=== PATIENT | female | born 1935 | race Caucasian/White ===

== ENCOUNTER 2020-02-28 15:41 | Inpatient (IN) | payer MEDICARE ==
[2020-02-28] MEDS ORDERED: HYDROcodone/Acetaminophen 7.5/325 mg Tablet PO PRN (17:28)
[2020-02-28] MEDS ORDERED: Promethazine 25 MG TAB PO PRN (17:31)
[2020-02-28] MEDS ORDERED: Zolpidem Tartrate 5 MG TAB PO PRN (17:32)
[2020-02-28] MEDS ORDERED: diphenhydrAMINE 25 MG CAP PO PRN (17:35)
[2020-02-28] MEDS ORDERED: Docusate Calcium (SURFAK) 240 MG CAP PO PRN (17:35)
[2020-02-28] MEDS ORDERED: Docusate Calcium (SURFAK) 240 MG CAP PO SCH (21:45)
[2020-02-28] MEDS: Gabapentin 300 MG CAP PO SCH (21:50)
[2020-02-28] MEDS: Atorvastatin Calcium 20 MG TAB PO SCH (21:50)
[2020-02-28] MEDS: Ezetimibe 10 MG TAB PO SCH (21:50)
[2020-02-28] MEDS: Cephalexin 500 MG CAP PO SCH (21:52)
[2020-02-28] MEDS: Carvedilol 6.25 MG TAB PO SCH (21:52)
[2020-02-28] MEDS ORDERED: Ondansetron ODT 4 MG TAB PO PRN (21:52)
[2020-02-28] MEDS: Enoxaparin Sodium 30 MG/0.3 ML SYRINGE SC SCH (21:52)
[2020-02-28] MEDS ORDERED: Ondansetron ODT 4 MG TAB PO SCH (22:00)
[2020-02-29] MEDS: Levothyroxine Sodium 100 MCG TAB PO SCH (05:33)
[2020-02-29] MEDS: Enoxaparin Sodium 30 MG/0.3 ML SYRINGE SC SCH ×2 (08:43→20:53)
[2020-02-29] MEDS: Milk Of Magnesia 30 ML UDCUP PO SCH (08:43)
[2020-02-29] MEDS: Gabapentin 300 MG CAP PO SCH ×3 (08:43→20:53)
[2020-02-29] MEDS: Cephalexin 500 MG CAP PO SCH ×2 (08:43→20:54)
[2020-02-29] MEDS: Docusate Calcium (SURFAK) 240 MG CAP PO SCH ×2 (08:43→20:53)
[2020-02-29] MEDS: traMADol HCl 50 MG TAB PO PRN ×2 (08:44→15:50)
[2020-02-29] MEDS: Multivitamin W/ Minerals 1 TAB PO SCH (08:44)
[2020-02-29] MEDS: Carvedilol 6.25 MG TAB PO SCH ×2 (08:45→20:54)
[2020-02-29] MEDS: Ferrous Gluconate 324 MG TAB PO SCH (08:45)
--- NOTE | 2020-02-29 12:20 | HP ---
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 BRIEF HISTORY: This is a pleasant 84-year-old female who underwent left hip revision by Dr. Beltran. Postoperative period was uneventful. She has a history of right hip replacement followed by dislocation, requiring reduction couple of times and has a footdrop on the right, which is slowly improving. She was felt to be a candidate for inpatient rehabilitation, so transferred here. Currently, the patient is resting in bed and denies any concerns. Pain is controlled on current regimen. COVID test is pending. Medically, she has history of hypertension, dyslipidemia, hypothyroidism and states that she has been compliant with her medications and denies any problems in the recent past. No family at bedside. PAST MEDICAL HISTORY: 1. Hypertension. 2. Dyslipidemia. 3. Hypothyroidism. 4. Osteoarthritis. 5. Right footdrop. 6. Chronic back pain. PAST SURGICAL HISTORY: 1. Tonsillectomy. 2. Lumbar spine surgery. 3. Hysterectomy. 4. Cervical spine surgery. 5. Bilateral cataract extractions. 6. Bilateral bunionectomy. 7. Appendectomy. 8. Right hip replacement. 9. Left hip replacement. 10. Knee arthroscopy. MEDICATIONS: She has been transferred here on the following medications. 1. Tylenol 650 q.4 p.r.n. 2. Lipitor 20 mg daily. 3. Carvedilol 6.25 mg b.i.d. 4. Keflex 500 mg q.12, I am not sure why she is on it. 5. Cyclobenzaprine 10 mg t.i.d. p.r.n. 6. Benadryl 25 q.6 p.r.n. 7. Surfak 240 mg b.i.d. 8. Lovenox 30 mg subcu b.i.d. 9. Zetia 10 mg daily. 10. Ferrous gluconate 324 daily. 11. Gabapentin 300 mg t.i.d. 12. She is also on Jakin 7.5/325 one tablet q.4 p.r.n. 13. Levoxyl 100 mcg daily. 14. Milk of magnesia 30 mL daily. 15. Myrbetriq 50 mg at bedtime. 16. Zofran 4 mg q.8 h. as needed. 17. Tramadol 50 mg q.6 p.r.n. 18. Ambien 5 mg nightly p.r.n. FAMILY HISTORY: Noncontributory to current admission. PSYCHOSOCIAL HISTORY: Denies any tobacco, alcohol, or recreational drug abuse. She was fairly active prior to this surgery. She did have the restrictions related to her right footdrop. REVIEW OF SYSTEMS: GENERAL: Denies any fever, chills, or weight changes. CARDIOVASCULAR: Denies any chest pain, shortness of breath, palpitations, PND, orthopnea, or pedal edema. RESPIRATORY: Denies any chronic cough, expectoration, or pleuritic-type chest pain. GASTROINTESTINAL: Denies any nausea, vomiting, diarrhea, constipation, hematemesis, melena, or hematochezia. GENITOURINARY: Denies any frequency, urgency, dysuria, or hematuria. CENTRAL NERVOUS SYSTEM: Right footdrop. Denies any focal numbness, weakness, or fainting spells. EXTREMITIES: Left hip pain. SKIN: Denies any rash. HEENT: Denies any changes with speech, vision, hearing, or swallowing. ALLERGIES: LATEX AND NATURAL RUBBER. NO KNOWN DRUG ALLERGIES. PHYSICAL EXAMINATION: GENERAL: A pleasant 84-year-old female, resting in bed, and denies any concerns. She responds appropriately to questions. She is alert, awake, and oriented x3. VITAL SIGNS: She is afebrile; heart rate is not documented, but on listening to her, it is about 72; blood pressure is 162/75; oxygen saturation is 95%; respiratory rate is not documented, but on examining, the rate is about 12. HEENT: Normocephalic and atraumatic. Pupils equally reacting to light and accommodation. No JVD, thyromegaly, cervical adenopathy, or throat exudates. No carotid bruits. CARDIOVASCULAR: S1 and S2 plus. Rate and rhythm regular. RESPIRATORY: Normal vesicular breath sounds heard in all lung leigh. ABDOMEN: Soft and nontender. Bowel sounds heard in all quadrants. EXTREMITIES: Without cyanosis or clubbing. Left hip incision with dressing. There is a Band-Aid over the site of the mass excision from the right index finger. There is no evidence for any neurovascular compromise. CENTRAL NERVOUS SYSTEM: Awake and responsive. Cranial nerves 2 through 12 intact. Generalized weakness. LABORATORY VALUES: None done on admission. IMPRESSION: 1. Status post left hip revision arthroplasty. 2. Osteoarthritis. 3. Hypertension. 4. Dyslipidemia. 5. Hypothyroidism. 6. Chronic back pain. 7. Right footdrop. PLAN: 1. Continue discharge medications from previous hospital. 2. Get baseline CBC and CMP. 3. Heart healthy diet. 4. Monitor blood pressure and adjust medications as needed. 5. PT/OT evaluation and treatment. 6. DVT prophylaxis, the patient is on Lovenox. 7. Decubitus precautions. 8. Orthopedic precautions and incision care. 9. Dr. Magaña back tonight. 10. No family at bedside. 11. Await COVID-19 test, until then continue droplet precautions. Job ID: [id number]
[2020-02-29 18:35] LABS: SARS-CoV-2 MS2 Positive; SARS-CoV-2 N Gene Negative; SARS-CoV-2 S Gene Negative; SARS-CoV-2 by NAA Not Detected (NotDetected); SARS-CoV-2 orf1ab Negative
[2020-02-29] MEDS: Ezetimibe 10 MG TAB PO SCH (20:53)
[2020-02-29] MEDS: Atorvastatin Calcium 20 MG TAB PO SCH (20:54)
[2020-03-01] MEDS: Levothyroxine Sodium 100 MCG TAB PO SCH (05:00)
[2020-03-01 06:01] LABS: #Eosinphils 0.2 thou/uL (0.0-0.7); #Lymphocytes 1.1 thou/uL (1.20-3.40); #Monocytes 0.5 thou/uL (0.11-0.59); #Neutrophils 2.3 thou/uL (1.40-6.50); %Basophils 0.9 % (0.0-1.0); %Eosinophils 4.8 % (0.0-10.0); %Lymphocytes 26.9 % (21.0-51.0); %Monocytes 11.4 % (0.0-10.0); %Neutrophils 56.1 % (42.0-75.0); Hemoglobin 8.5 g/dL (12.0-16.0); Mean Corpuscular HGB CONC 31.4 g/dL (32.0-36.0); Mean Corpuscular Hemoglobin 28.2 pg (27.0-31.0); Mean Platelet Volume 10.5 fL (7.4-10.4); Platelet Count 127 thou/uL (130-400); RBC Distribution Width 12.4 % (11.5-14.5); Red Blood Cell (RBC) Count 3.02 mill/uL (4.20-5.40); White Blood Cell (WBC) Count 4.1 thou/uL (4.8-10.8)
[2020-03-01 06:11] LABS: Anion Gap 10 mmol/L (10-20); BUN (Urea Nitrogen) 15 mg/dL (9.8-20.1); Calc. Creatinine Clearance 78 mL/min (70-130); Calcium 7.6 mg/dL (7.8-10.44); Carbon Dioxide 26 mmol/L (23-31); Chloride 106 mmol/L (98-107); Glucose 96 mg/dL (83-110); Potassium 3.9 mmol/L (3.5-5.1); Sodium 138 mmol/L (136-145)
[2020-03-01] MEDS: Gabapentin 300 MG CAP PO SCH ×3 (08:29→20:43)
[2020-03-01] MEDS: Enoxaparin Sodium 30 MG/0.3 ML SYRINGE SC SCH ×2 (08:29→20:41)
[2020-03-01] MEDS: Ferrous Gluconate 324 MG TAB PO SCH (08:29)
[2020-03-01] MEDS: Milk Of Magnesia 30 ML UDCUP PO SCH (08:29)
[2020-03-01] MEDS: Cephalexin 500 MG CAP PO SCH ×2 (08:30→20:42)
[2020-03-01] MEDS: Multivitamin W/ Minerals 1 TAB PO SCH (08:30)
[2020-03-01] MEDS: Docusate Calcium (SURFAK) 240 MG CAP PO SCH ×2 (08:30→20:43)
[2020-03-01] MEDS: Carvedilol 6.25 MG TAB PO SCH ×2 (08:30→20:43)
[2020-03-01] MEDS: traMADol HCl 50 MG TAB PO PRN (14:59)
[2020-03-01] MEDS: Acetaminophen 325 MG TAB PO PRN (20:42)
[2020-03-01] MEDS: Ezetimibe 10 MG TAB PO SCH (20:43)
[2020-03-01] MEDS: Atorvastatin Calcium 20 MG TAB PO SCH (20:43)
[2020-03-01] MEDS: Cyclobenzaprine 10 MG TAB PO PRN (20:43)
[2020-03-02] MEDS: Acetaminophen 325 MG TAB PO PRN ×2 (04:30→13:42)
[2020-03-02] MEDS: traMADol HCl 50 MG TAB PO PRN ×2 (04:31→13:43)
[2020-03-02] MEDS: Levothyroxine Sodium 100 MCG TAB PO SCH (05:41)
[2020-03-02] MEDS: Cyclobenzaprine 10 MG TAB PO PRN ×2 (08:33→21:19)
[2020-03-02] MEDS: Multivitamin W/ Minerals 1 TAB PO SCH (08:34)
[2020-03-02] MEDS: Gabapentin 300 MG CAP PO SCH ×3 (08:35→21:22)
[2020-03-02] MEDS: Docusate Calcium (SURFAK) 240 MG CAP PO SCH ×2 (08:36→21:20)
[2020-03-02] MEDS: Cephalexin 500 MG CAP PO SCH ×2 (08:36→21:20)
[2020-03-02] MEDS: Carvedilol 6.25 MG TAB PO SCH ×2 (08:36→21:21)
[2020-03-02] MEDS: Ferrous Gluconate 324 MG TAB PO SCH (08:36)
[2020-03-02] MEDS: Enoxaparin Sodium 30 MG/0.3 ML SYRINGE SC SCH ×2 (08:37→21:19)
[2020-03-02] MEDS: Milk Of Magnesia 30 ML UDCUP PO SCH (08:37)
[2020-03-02] MEDS: Ezetimibe 10 MG TAB PO SCH (21:20)
[2020-03-02] MEDS: Atorvastatin Calcium 20 MG TAB PO SCH (21:21)
[2020-03-03] MEDS: Levothyroxine Sodium 100 MCG TAB PO SCH (06:04)
[2020-03-03] MEDS: Enoxaparin Sodium 30 MG/0.3 ML SYRINGE SC SCH ×2 (07:53→20:44)
[2020-03-03] MEDS: Ferrous Gluconate 324 MG TAB PO SCH (07:54)
[2020-03-03] MEDS: Gabapentin 300 MG CAP PO SCH ×3 (07:54→20:43)
[2020-03-03] MEDS: Milk Of Magnesia 30 ML UDCUP PO SCH (07:54)
[2020-03-03] MEDS: Cephalexin 500 MG CAP PO SCH ×2 (07:55→20:45)
[2020-03-03] MEDS: Docusate Calcium (SURFAK) 240 MG CAP PO SCH ×2 (07:55→20:42)
[2020-03-03] MEDS: Carvedilol 6.25 MG TAB PO SCH ×2 (07:55→20:44)
[2020-03-03] MEDS: Multivitamin W/ Minerals 1 TAB PO SCH (07:55)
[2020-03-03] MEDS: Acetaminophen 325 MG TAB PO PRN (07:58)
[2020-03-03] MEDS: traMADol HCl 50 MG TAB PO PRN (08:00)
--- NOTE | 2020-03-03 16:43 | PRG ---
DATE OF SERVICE: 03/03/2020 SUBJECTIVE: The patient is doing well. No acute concerns. No acute events overnight. Discussed with the patient's staff, no concerns or complaints. REVIEW OF SYSTEMS: Denies any fever, chills, cough, congestion, chest pain, palpitations, nausea, vomiting, or diarrhea. OBJECTIVE: VITAL SIGNS: Today, temperature 97.8, blood pressure 171/77 to 182/79, respirations 16, O2 sats 96% on room air. GENERAL: Well-appearing 84-year-old female, in no acute distress, lying in bed, resting. RESPIRATIONS: Clear to auscultation bilaterally. No wheeze or rhonchi. HEART: Regular rate and rhythm. No murmurs, gallops, or rubs. GI: Soft, nontender to palpation. Bowel sounds positive in all 4 quadrants. EXTREMITIES: No cyanosis or clubbing. ASSESSMENT: 1. Status post left hip arthroplasty. 2. Osteoarthritis. 3. Hypertension. 4. Dyslipidemia. 5. Hypothyroidism. 6. Chronic back pain. 7. Right footdrop. PLAN: 1. Adjust the patient's blood pressure medication for better control. 2. Follow up CBC and CMP in a.m. 3. Heart-healthy diet. 4. Monitor for any decompensation. 5. PT/OT. 6. DVT and stress ulcer prophylaxis. 7. Decubitus precautions. 8. Orthopedic precautions, incision care. Job ID: [id number]
--- NOTE | 2020-03-03 16:45 | PRG ---
DATE OF SERVICE: 03/03/2020 SUBJECTIVE: The patient is an 84-year-old female, here for continued PT and OT services. She was originally at [facility] for revision of a left hip arthroplasty. Overall, she is doing very well. No complaints today. No family at bedside. Discussed with nursing staff. REVIEW OF SYSTEMS: Denies any cough, congestion, fever, chills, chest pain, palpitations, nausea, vomiting, or diarrhea. OBJECTIVE: VITAL SIGNS: Temperature 98.4, pulse 80, blood pressure 159/73, respirations 18, and O2 sats 94% on room air. LABORATORY DATA: White count 4.1, hemoglobin 8.5, hematocrit 27.2, and platelets 127. Sodium 138, potassium 3.9, chloride 106, bicarb 26, BUN 15, creatinine 0.76, GFR 73, and calcium 7.6. PHYSICAL EXAMINATION: GENERAL: A well-appearing 84-year-old female, lying in bed, in no acute distress. HEART: Regular rate and rhythm. No murmurs, gallops, or rubs. RESPIRATORY: Clear to auscultation bilaterally. No wheezes or rhonchi. ABDOMEN: Soft, nontender to palpation. Bowel sounds positive in all 4 quadrants. EXTREMITIES: No cyanosis, no clubbing. IMPRESSION: 1. Status post left hip revision arthroplasty. 2. Osteoarthritis. 3. Hypertension. 4. Dyslipidemia. 5. Hypothyroidism. 6. Chronic back pain. 7. Right footdrop. PLAN: 1. Continue current medications. 2. Follow up with hemoglobin and hematocrit at next CBC. 3. Heart healthy diet. 4. Monitor blood pressure and adjust medications as necessary. 5. PT/OT. 6. DVT and stress ulcer prophylaxis. 7. Decubitus precautions. 8. Orthopedic precautions and incision care. 9. The patient will need to follow up with Orthopedics following her discharge. 10. COVID test negative. Job ID: [id number]
[2020-03-03] MEDS: Ezetimibe 10 MG TAB PO SCH (20:43)
[2020-03-03] MEDS: Atorvastatin Calcium 20 MG TAB PO SCH (20:44)
[2020-03-04] MEDS: Levothyroxine Sodium 100 MCG TAB PO SCH (05:24)
[2020-03-04 05:51] LABS: #Eosinphils 0.2 thou/uL (0.0-0.7); #Lymphocytes 1.1 thou/uL (1.20-3.40); #Monocytes 0.5 thou/uL (0.11-0.59); #Neutrophils 2.2 thou/uL (1.40-6.50); %Basophils 0.7 % (0.0-1.0); %Eosinophils 5.3 % (0.0-10.0); %Lymphocytes 27.8 % (21.0-51.0); %Monocytes 11.2 % (0.0-10.0); Hemoglobin 8.7 g/dL (12.0-16.0); Mean Corpuscular HGB CONC 32.6 g/dL (32.0-36.0); Mean Corpuscular Hemoglobin 29.3 pg (27.0-31.0); Mean Corpuscular Volume 89.7 fL (78.0-98.0); Mean Platelet Volume 9.3 fL (7.4-10.4); Platelet Count 159 thou/uL (130-400); RBC Distribution Width 13.3 % (11.5-14.5); Red Blood Cell (RBC) Count 2.98 mill/uL (4.20-5.40)
[2020-03-04 06:04] LABS: Anion Gap 11 mmol/L (10-20); BUN (Urea Nitrogen) 18 mg/dL (9.8-20.1); Calc. Creatinine Clearance 76 mL/min (70-130); Calcium 7.9 mg/dL (7.8-10.44); Carbon Dioxide 27 mmol/L (23-31); Chloride 106 mmol/L (98-107); Glucose 96 mg/dL (83-110); Potassium 3.9 mmol/L (3.5-5.1); Sodium 140 mmol/L (136-145)
[2020-03-04] MEDS: Cephalexin 500 MG CAP PO SCH ×2 (08:34→20:11)
[2020-03-04] MEDS: Lisinopril 5 MG TAB PO SCH (08:34)
[2020-03-04] MEDS: Milk Of Magnesia 30 ML UDCUP PO SCH (08:34)
[2020-03-04] MEDS: Docusate Calcium (SURFAK) 240 MG CAP PO SCH ×2 (08:34→20:11)
[2020-03-04] MEDS: Ferrous Gluconate 324 MG TAB PO SCH (08:34)
[2020-03-04] MEDS: Gabapentin 300 MG CAP PO SCH ×3 (08:35→20:11)
[2020-03-04] MEDS: Enoxaparin Sodium 30 MG/0.3 ML SYRINGE SC SCH ×2 (08:35→20:12)
[2020-03-04] MEDS: Multivitamin W/ Minerals 1 TAB PO SCH (08:36)
[2020-03-04] MEDS: Carvedilol 6.25 MG TAB PO SCH ×2 (08:46→20:12)
[2020-03-04] MEDS: Acetaminophen 325 MG TAB PO PRN (08:47)
[2020-03-04] MEDS: traMADol HCl 50 MG TAB PO PRN (08:48)
[2020-03-04] MEDS ORDERED: Insulin Glargine 5 UNITS in Pre-Filled Syringe 1 EACH SC SCH (09:00)
--- NOTE | 2020-03-04 19:14 | PRG ---
DATE OF SERVICE: 03/04/2020 SUBJECTIVE: The patient feels well, is eating well, working with Therapy, no complaints. OBJECTIVE: VITAL SIGNS: Temperature is 97, pulse 76, respirations 18, O2 saturations 95% on room air, and blood pressure 163/64. LUNGS: Clear. CARDIAC: Regular rhythm. ABDOMEN: Soft and nontender. LABORATORY DATA: White count of 4000, hematocrit 26, and hemoglobin 8.7. Sodium 140, potassium 3.9, chloride 106, bicarb 27, BUN 18, and creatinine 0.78. ASSESSMENT: 1. Resolving left total hip. 2. Improving deconditioning. 3. Stable hypertension, slightly increased. 4. Chronic back pain. PLAN: 1. Monitor blood pressure. May need to adjust medicines as still is quite goal. 2. Continue PT/OT. 3. Continue pain relief for admission medications. 4. Continue to monitor hemoglobin, appears to be stable. Job ID: [id number]
[2020-03-04] MEDS: Atorvastatin Calcium 20 MG TAB PO SCH (20:11)
[2020-03-04] MEDS: Ezetimibe 10 MG TAB PO SCH (20:12)
[2020-03-05] MEDS: Levothyroxine Sodium 100 MCG TAB PO SCH (05:23)
[2020-03-05] MEDS: Ferrous Gluconate 324 MG TAB PO SCH (09:10)
[2020-03-05] MEDS: Milk Of Magnesia 30 ML UDCUP PO SCH (09:10)
[2020-03-05] MEDS: Enoxaparin Sodium 30 MG/0.3 ML SYRINGE SC SCH ×2 (09:10→21:15)
[2020-03-05] MEDS: Docusate Calcium (SURFAK) 240 MG CAP PO SCH ×2 (09:10→21:15)
[2020-03-05] MEDS: Cephalexin 500 MG CAP PO SCH ×2 (09:10→21:15)
[2020-03-05] MEDS: Gabapentin 300 MG CAP PO SCH ×3 (09:10→21:14)
[2020-03-05] MEDS: Lisinopril 5 MG TAB PO SCH (09:11)
[2020-03-05] MEDS: Carvedilol 6.25 MG TAB PO SCH ×2 (09:11→21:14)
[2020-03-05] MEDS: Multivitamin W/ Minerals 1 TAB PO SCH (09:11)
--- NOTE | 2020-03-05 16:02 | PRG ---
DATE OF SERVICE: 03/05/2020 SUBJECTIVE: Ms. Stacy is resting in bed. She just finished her lunch. She denies any questions or concerns. She is happy with her progress. OBJECTIVE: VITAL SIGNS: She is afebrile. Heart rate 83, respirations 20, oxygen saturation 96% on room air, blood pressure 122/68. CARDIOVASCULAR SYSTEM: S1 and S2 plus. RESPIRATORY SYSTEM: Normal vesicular breath sounds. ABDOMEN: Soft, nontender. Bowel sounds heard in all quadrants. EXTREMITIES: Without cyanosis or clubbing. CENTRAL NERVOUS SYSTEM: Improving deconditioning. IMPRESSION: 1. Hypertension. 2. Dyslipidemia. 3. Hypothyroidism. 4. Osteoarthritis. 5. Recent revision of left hip arthroplasty. PLAN: 1. Continue current medications. 2. Nutritional support with heart healthy diet. 3. Orthopedic precautions. 4. DVT prophylaxis-the patient is on Lovenox. 5. Decubitus precautions. 6. Stress ulcer prophylaxis. 7. Physical therapy. 8. Routine laboratory values. Job ID: [id number]
[2020-03-05] MEDS: Ezetimibe 10 MG TAB PO SCH (21:15)
[2020-03-05] MEDS: Atorvastatin Calcium 20 MG TAB PO SCH (21:15)
[2020-03-06] MEDS: Levothyroxine Sodium 100 MCG TAB PO SCH (06:15)
[2020-03-06] MEDS: Acetaminophen 325 MG TAB PO PRN (09:34)
[2020-03-06] MEDS: traMADol HCl 50 MG TAB PO PRN (09:36)
[2020-03-06] MEDS: Gabapentin 300 MG CAP PO SCH ×3 (09:36→21:29)
[2020-03-06] MEDS: Carvedilol 6.25 MG TAB PO SCH ×2 (09:37→21:30)
[2020-03-06] MEDS: Cephalexin 500 MG CAP PO SCH ×2 (09:37→21:30)
[2020-03-06] MEDS: Ferrous Gluconate 324 MG TAB PO SCH (09:38)
[2020-03-06] MEDS: Docusate Calcium (SURFAK) 240 MG CAP PO SCH ×2 (09:38→21:29)
[2020-03-06] MEDS: Multivitamin W/ Minerals 1 TAB PO SCH (09:38)
[2020-03-06] MEDS: Lisinopril 5 MG TAB PO SCH (09:38)
[2020-03-06] MEDS: Enoxaparin Sodium 30 MG/0.3 ML SYRINGE SC SCH ×2 (09:39→21:28)
[2020-03-06] MEDS: Milk Of Magnesia 30 ML UDCUP PO SCH (09:39)
--- NOTE | 2020-03-06 15:46 | PRG ---
DATE OF SERVICE: 03/06/2020 SUBJECTIVE: Ms. Stacy is up in her chair, enjoying a book. She is having a lazy Saturday. She apparently is scheduled to go home on the and she wonders if she can go home on the . I advised her that I will let Dr. Magaña know, but I do not foresee a problem. OBJECTIVE: VITAL SIGNS: She is afebrile. Heart rate 78, respirations 18, oxygen saturation 93% on room air, blood pressure 159/74. CARDIOVASCULAR: S1, S2 plus. RESPIRATORY: Normal vesicular breath sounds. ABDOMEN: Soft, nontender. Bowel sounds heard in all quadrants. EXTREMITIES: Without cyanosis or clubbing. CENTRAL NERVOUS SYSTEM: Improving deconditioning. IMPRESSION: 1. Revision of left hip arthroplasty. 2. Hypertension. 3. Dyslipidemia. 4. Hypothyroidism. 5. Osteoarthritis. 6. Improving deconditioning. PLAN: 1. Continue current medications. 2. Nutritional support with heart-healthy diet. 3. Monitor blood pressure and adjust medications as needed. 4. Orthopedic precautions. 5. DVT prophylaxis - she is on Lovenox. 6. Decubitus precaution. 7. Stress-ulcer prophylaxis. 8. Therapy. 9. Discharge planning. 10. Dr. Magaña back [facility]. Job ID: [id number]
[2020-03-06 20:35] VITALS: BMI 27.8
[2020-03-06] MEDS: Ezetimibe 10 MG TAB PO SCH (21:29)
[2020-03-06] MEDS: Atorvastatin Calcium 20 MG TAB PO SCH (21:29)
[2020-03-07] MEDS: Levothyroxine Sodium 100 MCG TAB PO SCH (06:00)
[2020-03-07] MEDS: traMADol HCl 50 MG TAB PO PRN (08:44)
[2020-03-07] MEDS: Enoxaparin Sodium 30 MG/0.3 ML SYRINGE SC SCH ×2 (08:46→20:54)
[2020-03-07] MEDS: Docusate Calcium (SURFAK) 240 MG CAP PO SCH ×2 (08:46→20:53)
[2020-03-07] MEDS: Gabapentin 300 MG CAP PO SCH ×3 (08:47→20:53)
[2020-03-07] MEDS: Multivitamin W/ Minerals 1 TAB PO SCH (08:47)
[2020-03-07] MEDS: Carvedilol 6.25 MG TAB PO SCH ×2 (08:48→20:53)
[2020-03-07] MEDS: Lisinopril 5 MG TAB PO SCH (08:48)
[2020-03-07] MEDS: Ferrous Gluconate 324 MG TAB PO SCH (08:49)
[2020-03-07] MEDS: Milk Of Magnesia 30 ML UDCUP PO SCH (08:49)
[2020-03-07] MEDS: Cephalexin 500 MG CAP PO SCH ×2 (08:49→20:54)
[2020-03-07] MEDS: Ezetimibe 10 MG TAB PO SCH (20:53)
[2020-03-07] MEDS: Atorvastatin Calcium 20 MG TAB PO SCH (20:54)
[2020-03-08] MEDS: Levothyroxine Sodium 100 MCG TAB PO SCH (06:06)
[2020-03-08] MEDS: traMADol HCl 50 MG TAB PO PRN (08:22)
[2020-03-08] MEDS: Milk Of Magnesia 30 ML UDCUP PO SCH (08:25)
[2020-03-08] MEDS: Enoxaparin Sodium 30 MG/0.3 ML SYRINGE SC SCH ×2 (08:25→21:18)
[2020-03-08] MEDS: Cephalexin 500 MG CAP PO SCH ×2 (08:25→21:19)
[2020-03-08] MEDS: Lisinopril 5 MG TAB PO SCH (08:26)
[2020-03-08] MEDS: Docusate Calcium (SURFAK) 240 MG CAP PO SCH ×2 (08:26→21:19)
[2020-03-08] MEDS: Gabapentin 300 MG CAP PO SCH ×3 (08:26→21:19)
[2020-03-08] MEDS: Multivitamin W/ Minerals 1 TAB PO SCH (08:26)
[2020-03-08] MEDS: Carvedilol 6.25 MG TAB PO SCH ×2 (08:27→21:19)
[2020-03-08] MEDS: Ferrous Gluconate 324 MG TAB PO SCH (08:28)
--- NOTE | 2020-03-08 13:16 | PRG ---
DATE OF SERVICE: 03/08/2020 SUBJECTIVE: Ms. Stacy is doing well. She states on . She had a cyst removed from her finger and sutures need to come out and gave instructions to nursing. No other questions or concerns. OBJECTIVE: VITAL SIGNS: She is afebrile. Heart rate 79, respirations 19, oxygen saturation 96% on room air, blood pressure is 157/74. CARDIOVASCULAR: S1, S2, plus. RESPIRATORY: Normal vesicular breath sounds. ABDOMEN: Soft, nontender. Bowel sounds heard in all quadrants. EXTREMITIES: Without cyanosis or clubbing. CENTRAL NERVOUS SYSTEM: Improving deconditioning. IMPRESSION: 1. Revision of left hip arthroplasty. 2. Hypertension. 3. Dyslipidemia. 4. Hypothyroidism. 5. Osteoarthritis. 6. Improving deconditioning. PLAN: 1. Continue current medications. 2. Heart healthy diet. 3. Remove sutures. 4. Orthopedic precautions. 5. DVT prophylaxis-she is on Lovenox. 6. Decubitus precautions. 7. Stress ulcer prophylaxis. 8. Discharge planning. Job ID: [id number]
[2020-03-08] MEDS: Ezetimibe 10 MG TAB PO SCH (21:19)
[2020-03-08] MEDS: Atorvastatin Calcium 20 MG TAB PO SCH (21:20)
[2020-03-09] MEDS: Levothyroxine Sodium 100 MCG TAB PO SCH (05:48)
[2020-03-09] MEDS: Gabapentin 300 MG CAP PO SCH ×3 (08:35→20:48)
[2020-03-09] MEDS: Enoxaparin Sodium 30 MG/0.3 ML SYRINGE SC SCH ×2 (08:35→20:47)
[2020-03-09] MEDS: Milk Of Magnesia 30 ML UDCUP PO SCH (08:35)
[2020-03-09] MEDS: Carvedilol 6.25 MG TAB PO SCH ×2 (08:36→20:48)
[2020-03-09] MEDS: Lisinopril 5 MG TAB PO SCH (08:37)
[2020-03-09] MEDS: Docusate Calcium (SURFAK) 240 MG CAP PO SCH ×2 (08:37→20:48)
[2020-03-09] MEDS: Ferrous Gluconate 324 MG TAB PO SCH (08:37)
[2020-03-09] MEDS: Multivitamin W/ Minerals 1 TAB PO SCH (08:37)
[2020-03-09] MEDS: Cephalexin 500 MG CAP PO SCH ×2 (08:38→20:48)
--- NOTE | 2020-03-09 12:35 | PRG ---
DATE OF SERVICE: 03/09/2020 SUBJECTIVE: Ms. Stacy is up in her chair, getting ready for lunch. She is anticipated discharge home tomorrow. She has chosen [facility]. The patient qualifies for Home Health as she is homebound. Therapy feels that she needs home PT and OT. She is recovering from her hip revision. Home Health will be managed by her PCP or her Orthopedic surgeon. This note is to be construed as [id number] documentation. OBJECTIVE: VITAL SIGNS: She is afebrile, heart rate 74, respirations 18, oxygen saturation 96% on room air, blood pressure 141/70. CARDIOVASCULAR SYSTEM: S1 and S2 plus. RESPIRATORY SYSTEM: Normal vesicular breath sounds. ABDOMEN: Soft, nontender. Bowel sounds heard in all quadrants. EXTREMITIES: Without cyanosis or clubbing. Hip incision is healthy. IMPRESSION: 1. Revision left hip arthroplasty. 2. Hypertension. 3. Dyslipidemia. 4. Hypothyroidism. 5. Osteoarthritis. 6. Improving deconditioning. PLAN: 1. Continue current medications. 2. Heart healthy diet. 3. Orthopedic precautions. 4. Discharge planning. 5. Decubitus precautions. 6. Outpatient followup PCP. 7. Dr. Gómez loera. Job ID: [id number]
[2020-03-09] MEDS: Atorvastatin Calcium 20 MG TAB PO SCH (20:48)
[2020-03-09] MEDS: Ezetimibe 10 MG TAB PO SCH (20:49)
[2020-03-10] MEDS: Levothyroxine Sodium 100 MCG TAB PO SCH (05:25)
[2020-03-10 07:43] VITALS: BP 179/77; TEMP 98.3
[2020-03-10] MEDS: Milk Of Magnesia 30 ML UDCUP PO SCH (08:38)
[2020-03-10] MEDS: Docusate Calcium (SURFAK) 240 MG CAP PO SCH (08:38)
[2020-03-10] MEDS: Ferrous Gluconate 324 MG TAB PO SCH (08:38)
[2020-03-10] MEDS: Multivitamin W/ Minerals 1 TAB PO SCH (08:38)
[2020-03-10] MEDS: Gabapentin 300 MG CAP PO SCH (08:38)
[2020-03-10] MEDS: Lisinopril 5 MG TAB PO SCH (08:40)
[2020-03-10] MEDS: Carvedilol 6.25 MG TAB PO SCH (08:41)
[2020-03-10] MEDS: Enoxaparin Sodium 30 MG/0.3 ML SYRINGE SC SCH (08:41)
--- NOTE | 2020-03-10 09:52 | PRG ---
DATE OF SERVICE: Job ID: [id number]
== END 2020-03-10 10:35 | disposition home health service (06) | DRG 561 ==
LOC: NAV ACUTE 15:41
PROVIDERS: ADMIT Family Medicine; ATTEND Family Medicine
DX: Z47.1 Aftercare following joint replacement surgery (principal); E03.9 Hypothyroidism, unspecified; E78.5 Hyperlipidemia, unspecified; I10 Essential (primary) hypertension; G89.29 Other chronic pain; M54.9 Dorsalgia, unspecified; Z90.710 Acquired absence of both cervix and uterus; Z90.49 Acquired absence of other specified parts of digestive tract; Z96.643 Presence of artificial hip joint, bilateral; Z98.42 Cataract extraction status, left eye; Z98.41 Cataract extraction status, right eye; Z79.899 Other long term (current) drug therapy; Z91.040 Latex allergy status; M19.90 Unspecified osteoarthritis, unspecified site; R53.81 Other malaise
CPT/HCPCS: 36415; 80048; 85025; 87635; J1650; U0003